=== PATIENT | male | born 1960 | race African-American/Black ===

== ENCOUNTER 2017-03-17 06:08 | Inpatient (IN) | payer OTHER ==
[2017-03-06 14:55] VITALS: BMI 33.2
[~2017-03-17 06:08] MED LIST: CEFAZOLIN 2 GM in DEXTROSE 5%-WATER - 50 ML IVPB ONE; ROPIVICAINE 0.2%/MORPH PF/KETOROLAC - 51ML DISP.SYRINGE IA ONE; TRANEXAMIC ACID 1000 MG/10 ML VIAL IVPUSH ONE
[2017-03-17] MEDS ORDERED: PANTOPRAZOLE 40 MG TABLET (FP) ONE (06:40)
[2017-03-17] MEDS ORDERED: oxyCODONE HCL 10 MG SUSTAINED ACTING TABLET ONE (06:40)
[2017-03-17] MEDS ORDERED: GABAPENTIN 300 MG CAPSULE (FP) ONE (06:41)
[2017-03-17] MEDS ORDERED: CELECOXIB 200 MG CAPSULE ONE (06:41)
[2017-03-17] MEDS: PANTOPRAZOLE 40 MG TABLET (FP) PO ONE (07:00)
[2017-03-17] MEDS: GABAPENTIN 300 MG CAPSULE (FP) PO ONE (07:00)
[2017-03-17] MEDS: oxyCODONE HCL 10 MG SUSTAINED ACTING TABLET PO ONE (07:00)
[2017-03-17] MEDS: CELECOXIB 200 MG CAPSULE PO ONE (07:00)
[2017-03-17] MEDS ORDERED: ceFAZolin SODIUM 1 GM VIAL ONE ×4 (07:13→13:23)
[2017-03-17] MEDS ORDERED: VANCOMYCIN 1,000 MG VIAL (RESTRICTED TO ID ONLY) ONE (07:13)
[2017-03-17] MEDS ORDERED: ROPIVICAINE 0.2%/MORPH PF/KETOROLAC - 51ML DISP.SYRINGE IA ONE ×3 (07:14→13:00)
[2017-03-17] MEDS ORDERED: MIDAZOLAM HCL 2 MG/2 ML SINGLE DOSE VIAL ONE ×4 (07:15→11:23)
[2017-03-17] MEDS ORDERED: DEXAMETHASONE SOD PHOSPHATE/PF 10 MG/ML SDV ONE (07:15)
[2017-03-17] MEDS ORDERED: BUPIVACAINE HCL/PF (5 MG/ML) 30 ML VIAL IJ ONE (07:16)
[2017-03-17] MEDS ORDERED: EPINEPHrine/PF 1 MG/1 ML (1:1,000) AMPULE ONE (07:16)
--- NOTE | 2017-03-17 07:23 | HP ---
Admitting History and Physical - Admission Chief Complaint: Painful total hip arthroplasty History of Present Illness: 56-year-old male presenting in regard to his left hip. Patient is status post a left total hip arthroplasty. Despite his surgery, patient continues to have pain , limited range of motion, difficulty ambulating, and difficulties with activities of daily living. Patient has failed conservative treatment measures including PO medications, injections, activity modification, and exercise program. At this point, patient would like to proceed with a revision left total hip arthroplasty. History Source: Patient - Past Medical History Cardiovascular: Yes: HTN Musculoskeletal: Yes: Osteoarthritis - Past Surgical History Additional Past Surgical History: total hip arthroplasty, see written history and physical. - Smoking History Smoking history: Never smoked Have you smoked in the past 12 months: No - Alcohol/Substance Use Hx Alcohol Use: No Home Medications - Allergies Allergies/Adverse Reactions: Allergies Allergy/AdvReac Type Severity Reaction Status Date / Time No Known Allergies Allergy Verified 03/06/17 14:45 - Home Medications Home Medications: Ambulatory Orders Amlodipine Besylate [Norvasc -] 5 mg PO DAILY 03/06/17 Aspirin [Aspirin EC] 325 mg PO DAILY 03/06/17 Cholecalciferol (Vitamin D3) [Vitamin D] 2,000 unit PO DAILY 03/06/17 Hydrochlorothiazide [Hctz -] 12.5 mg PO DAILY 03/06/17 Multivitamin [One Daily] 1 each PO DAILY 03/06/17 Meloxicam [Mobic (Nf) -] 15 mg PO DAILY PRN 03/17/17 Oxycodone HCl/Acetaminophen [Percocet 5-325 mg Tablet] 1 tab PO Q4H PRN Review of Systems - Review of Systems Musculoskeletal: reports: Joint Pain (left hip) Physical Examination Vital Signs: Vital Signs Temperature 98.0 F 03/17/17 07:02 Pulse Rate 64 03/17/17 07:02 Respiratory Rate 18 03/17/17 07:02 Blood Pressure 153/87 03/17/17 07:02 O2 Sat by Pulse Oximetry (%) Constitutional: Yes: Well Nourished, No Distress Eyes: Yes: Conjunctiva Clear HENT: Yes: Atraumatic, Normocephalic Neck: Yes: Supple Cardiovascular: Yes: Regular Rate and Rhythm Respiratory: Yes: Regular Gastrointestinal: Yes: Soft ...Rectal Exam: Yes: Deferred Musculoskeletal: Yes: Other (painfuk ROM of left GOLDIE) Assessment/Plan 56-year-old male presenting in regard to his left hip. Patient is status post a left total hip arthroplasty. Despite his surgery, patient continues to have pain , limited range of motion, difficulty ambulating, and difficulties with activities of daily living. Patient has failed conservative treatmwnt measures including PO medications, injections, activity modification, and exercise program. Pros, cons, risks, benefits and alternatives of a revision left total hip arthroplasty were discussed. Patient confirms his understanding, patient would like to proceed with a revision left total hip arthroplasty.
[2017-03-17] MEDS ORDERED: ROPIVACAINE HCL 0.5% 30ML VIAL ONE (07:34)
[2017-03-17] MEDS ORDERED: BUPIVACAINE HCL/PF 2.5 MG/ML - 30 ML VIAL IJ ONE (07:49)
[2017-03-17] MEDS ORDERED: SODIUM CHLORIDE 0.9% P/F 10 ML VIAL IJ ONE (07:51)
[2017-03-17] MEDS ORDERED: BUPIVACAINE HCL/PF 0.5% (5MG/ML) 10 ML VIAL ONE (08:24)
[2017-03-17] MEDS ORDERED: TRANEXAMIC ACID 1000 MG/10 ML VIAL ONE ×3 (08:37→13:23)
[2017-03-17] MEDS ORDERED: VANCOMYCIN 1,000 MG VIAL (RESTRICTED TO ID ONLY) IVPB ONE ×2 (09:03→13:00)
[2017-03-17] MEDS ORDERED: ceFAZolin SODIUM 1 GM VIAL IVPB ONE ×2 (09:03)
[2017-03-17] MEDS ORDERED: TRANEXAMIC ACID 1000 MG/10 ML VIAL IVPUSH ONE (13:00)
[2017-03-17] MEDS ORDERED: traMADol HCL 50 MG TABLET ONE (14:18)
[2017-03-17] MEDS ORDERED: KETOROLAC TROMETHAMINE 30 MG/1 ML VIAL ONE (14:18)
[2017-03-17] MEDS ORDERED: ACETAMINOPHEN INJECTION 100 ML IVPB ONE (14:18)
[2017-03-17] MEDS ORDERED: PROMETHAZINE HCL 25 MG/1 ML VIAL IVPB PRN (14:19)
[2017-03-17] MEDS ORDERED: ONDANSETRON 4 MG/2 ML VIAL IVPUSH PRN ×2 (14:19→14:41)
[2017-03-17] MEDS ORDERED: oxyCODONE HCL 5 MG TABLET PO PRN (14:19)
[2017-03-17] MEDS ORDERED: ACETAMINOPHEN 1000 MG/100 ML VIAL (NON FORMULARY) IVPB ONE ×2 (14:38→14:45)
[2017-03-17] MEDS ORDERED: MAGNESIUM HYDROX 2400MG/30ML ORAL SUSPENSION 30 ML CUP PO PRN (14:41)
[2017-03-17] MEDS ORDERED: MAG HYDROX/AL HYDROX/SIMETH 30 ML UNIT-DOSE CUP PO PRN (14:41)
[2017-03-17] MEDS ORDERED: LACTATED RINGERS SOLUTION 1,000 ML IV SCH (14:45)
--- NOTE | 2017-03-17 14:48 | OP ---
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
[2017-03-17] MEDS ORDERED: traMADol HCL 50 MG TABLET PO ONE (14:55)
[2017-03-17] MEDS ORDERED: KETOROLAC TROMETHAMINE 30 MG/1 ML VIAL IVPUSH ONE (14:59)
[2017-03-17] MEDS: KETOROLAC TROMETHAMINE 30 MG/1 ML VIAL IVPUSH SCH ×2 (15:54→20:52)
[2017-03-17] MEDS: traMADol HCL 50 MG TABLET PO SCH ×2 (15:54→20:53)
[2017-03-17] MEDS ORDERED: CEFAZOLIN 2 GM/D5W 2 GM/50 ML ML IVPB SCH (16:00)
[2017-03-17] MEDS ORDERED: VANCOMYCIN 1,500 MG in DEXTROSE 5%-WATER - 500 ML IVPB ONE (18:00)
[2017-03-17] MEDS ORDERED: DEXAMETHASONE SOD PHOSPHATE 10 MG/1 ML VIAL IVPB ONE (20:00)
[2017-03-17] MEDS: CEFAZOLIN 2 GM/D5W 2 GM/50 ML ML IVPB SCH (20:52)
[2017-03-17] MEDS: ACETAMINOPHEN 325 MG TABLET (FP) PO SCH (20:53)
[2017-03-17] MEDS ORDERED: GABAPENTIN 300 MG CAPSULE (FP) PO SCH (22:00)
[2017-03-17] MEDS: FERROUS SO4 325 MG TABLET (FP) PO SCH (22:20)
[2017-03-17] MEDS: GABAPENTIN 300 MG CAPSULE (FP) PO SCH (22:20)
[2017-03-17] MEDS: oxyCODONE HCL 10 MG SUSTAINED ACTING TABLET PO SCH (22:20)
[2017-03-17] MEDS: ASCORBIC ACID 500 MG TABLET (FP) PO SCH (22:20)
[2017-03-17] MEDS: CELECOXIB 200 MG CAPSULE PO SCH (22:20)
[2017-03-17] MEDS: SENNOSIDES/DOCUSATE COMBO (SENNA PLUS) TABLET (UD) PO SCH (22:20)
[2017-03-18] MEDS: KETOROLAC TROMETHAMINE 30 MG/1 ML VIAL IVPUSH SCH ×2 (03:08→09:17)
[2017-03-18] MEDS: traMADol HCL 50 MG TABLET PO SCH ×4 (03:09→21:40)
[2017-03-18] MEDS: ACETAMINOPHEN 325 MG TABLET (FP) PO SCH ×4 (03:09→21:39)
[2017-03-18] MEDS: CEFAZOLIN 2 GM/D5W 2 GM/50 ML ML IVPB SCH ×3 (04:30→21:39)
[2017-03-18] MEDS: CELECOXIB 200 MG CAPSULE PO ONE (07:45)
[2017-03-18] MEDS: oxyCODONE HCL 10 MG SUSTAINED ACTING TABLET PO ONE (07:45)
[2017-03-18] MEDS: GABAPENTIN 300 MG CAPSULE (FP) PO ONE (07:45)
[2017-03-18] MEDS: PANTOPRAZOLE 40 MG TABLET (FP) PO ONE (07:46)
[2017-03-18 08:51] LABS: ANION GAP 6 (8-16); BLOOD UREA NITROGEN 12 mg/dl (7-18); CALCIUM 8.5 mg/dl (8.4-10.2); CHLORIDE 104 mmol/L (98-107); CO2 24 mmol/L (22-28); CREATININE 0.8 mg/dl (0.6-1.3); GLUCOSE,RANDOM 127 mg/dl (74-106); HEMOGLOBIN 11.6 GM/dl (11.7-16.9); MCH 30.6 pg (25.7-33.7); MEAN CELL VOLUME 87.2 fl (80-96); PLATELET COUNT 204 K/MM3 (134-434); POTASSIUM 4.2 mmol/L (3.5-5.1); RBC 3.79 M/mm3 (4.00-5.60); SODIUM 134 mmol/L (136-145); WHITE BLOOD COUNT 11.7 K/mm3 (4.0-10.8)
[2017-03-18] MEDS: PANTOPRAZOLE 40 MG TABLET (FP) PO SCH (09:13)
[2017-03-18] MEDS: MULTIVITAMINS (DAILY MVI) TABLET (FP) PO SCH (09:13)
[2017-03-18] MEDS: amLODIPine BESYLATE 5 MG TABLET (FP) PO SCH (09:13)
[2017-03-18] MEDS: ASCORBIC ACID 500 MG TABLET (FP) PO SCH ×2 (09:13→21:42)
[2017-03-18] MEDS: GABAPENTIN 300 MG CAPSULE (FP) PO SCH ×2 (09:13→21:41)
[2017-03-18] MEDS: FERROUS SO4 325 MG TABLET (FP) PO SCH ×2 (09:13→21:40)
[2017-03-18] MEDS: ASPIRIN 325 MG ENTERIC COATED TABLET (FP) PO SCH (09:13)
[2017-03-18] MEDS: CELECOXIB 200 MG CAPSULE PO SCH ×2 (09:13→21:40)
[2017-03-18] MEDS: HYDROCHLOROTHIAZIDE 12.5 MG CAPSULE (FP) PO SCH (09:14)
[2017-03-18] MEDS: SENNOSIDES/DOCUSATE COMBO (SENNA PLUS) TABLET (UD) PO SCH ×2 (09:15→21:41)
[2017-03-18] MEDS: oxyCODONE HCL 10 MG SUSTAINED ACTING TABLET PO SCH ×2 (09:16→21:41)
[2017-03-18] MEDS ORDERED: MULTIVITAMINS (DAILY MVI) TABLET (FP) PO SCH (10:00)
--- NOTE | 2017-03-18 10:49 | PN ---
Progress Note, Physician Chief Complaint: s/p left revision total hip replacement History of Present Illness: under spinal anesthesia with peripheral nerve block for post op pain control - Current Medication List Current Medications: Active Medications Acetaminophen (Tylenol -) 650 mg PO Q6H [facility] Stop: 03/20/17 20:59 Last Admin: 03/18/17 09:15 Dose: 650 mg Al Hydroxide/Mg Hydroxide (Mylanta Oral Suspension -) 30 ml PO Q4H PRN PRN Reason: DYSPEPSIA Amlodipine Besylate (Norvasc -) 5 mg PO DAILY [facility] Last Admin: 03/18/17 09:13 Dose: 5 mg Ascorbic Acid (Vitamin C -) 500 mg PO BID [facility] Last Admin: 03/18/17 09:13 Dose: 500 mg Aspirin (Ecotrin -) 325 mg PO DAILY [facility] Last Admin: 03/18/17 09:13 Dose: 325 mg Celecoxib (Celebrex -) 200 mg PO BID [facility] Last Admin: 03/18/17 09:13 Dose: 200 mg Ferrous Sulfate (Feosol -) 325 mg PO BID [facility] Last Admin: 03/18/17 09:13 Dose: 325 mg Gabapentin (Neurontin -) 300 mg PO BID [facility] Stop: 03/20/17 21:59 Last Admin: 03/18/17 09:13 Dose: 300 mg Hydrochlorothiazide (Hctz -) 12.5 mg PO DAILY [facility] Last Admin: 03/18/17 09:14 Dose: 12.5 mg Cefazolin Sodium/Dextrose (Ancef 2 Gm Premixed Ivpb -) 2 gm in 50 mls @ 100 mls /hr IVPB Q8H [facility] Last Admin: 03/18/17 04:30 Dose: 100 mls/hr Magnesium Hydroxide (Milk Of Magnesia -) 30 ml PO PRN PRN PRN Reason: CONSTIPATION Multivitamins/Minerals/Vitamin C (Tab-A-Vit -) 1 tab PO DAILY [facility] Last Admin: 03/18/17 09:13 Dose: 1 tab Ondansetron HCl (Zofran Injection) 4 mg IVPUSH Q6H PRN PRN Reason: NAUSEA Oxycodone HCl (Roxicodone -) 5 mg PO Q3H PRN PRN Reason: PAIN LEVEL 1-5 Last Admin: 03/17/17 17:30 Dose: 5 mg Oxycodone HCl (Roxicodone -) 10 mg PO Q3H PRN PRN Reason: PAIN LEVEL 6-10 Oxycodone HCl (Oxycontin -) 10 mg PO BID [facility] Stop: 03/20/17 14:20 Last Admin: 03/18/17 09:16 Dose: 10 mg Pantoprazole Sodium (Protonix -) 40 mg PO DAILY [facility] Last Admin: 03/18/17 09:13 Dose: 40 mg Promethazine HCl (Phenergan Injection -) 12.5 mg IVPB Q6H PRN PRN Reason: NAUSEA-FOR RESCUE AFTER 15 MIN Senna/Docusate Sodium (Pericolace -) 2 tablet PO BID [facility] Last Admin: 03/18/17 09:15 Dose: 2 tablet Tramadol HCl (Ultram -) 50 mg PO Q6H [facility] Last Admin: 03/18/17 09:15 Dose: 50 mg - Objective Vital Signs: Vital Signs Temperature 98.6 F 03/18/17 09:12 Pulse Rate 88 03/18/17 09:12 Respiratory Rate 17 03/18/17 09:12 Blood Pressure 155/69 03/18/17 09:12 O2 Sat by Pulse Oximetry (%) 95 03/18/17 06:13 Constitutional: Yes: Well Nourished Cardiovascular: Yes: WNL Respiratory: Yes: WNL Gastrointestinal: Yes: WNL Neurological: Yes: WNL Labs: CBC, BMP 03/18/17 08:00 03/18/17 08:00 Assessment/Plan post op day one, patient is doing well , pain controlled, no nausea vomiting or headache, no adverse anesthetic reaction . dept of anesthesia will sign off care at this time.
[2017-03-18] MEDS: oxyCODONE HCL 5 MG TABLET PO PRN (16:17)
--- NOTE | 2017-03-18 22:17 | PN ---
Progress Note (short form) - Note Progress Note: Pt seen and examined. Doing very well. Walked 700+ feet today. AVSS Selected Entries 03/18/17 03/18/17 14:09 20:32 Temperature 97.9 F Pulse Rate 83 Respiratory 19 Rate Blood Pressure 146/59 O2 Sat by Pulse 96 Oximetry (%) Oxygen Delivery Room Air Method Laboratory Tests 03/18/17 03/18/17 08:00 08:00 WBC 11.7 H Hgb 11.6 L Hct 33.0 L Plt Count 204 Sodium 134 L Potassium 4.2 Chloride 104 Carbon Dioxide 24 Anion Gap 6 L BUN 12 Creatinine 0.8 Random Glucose 127 H Calcium 8.5 Gen: NAD LLE: c/d/i, NVID A/P 56yo male POD#1 s/p L hip revision 1. PT/OOB - WBAT LLE 2. D/C home in AM after PT; f/u in 10-14 days as an outpatient.
--- NOTE | 2017-03-18 22:32 | DS ---
Physical Examination Vital Signs: Vital Signs Temperature 97.9 F 03/18/17 14:09 Pulse Rate 83 03/18/17 14:09 Respiratory Rate 19 03/18/17 20:32 Blood Pressure 146/59 03/18/17 14:09 O2 Sat by Pulse Oximetry (%) 96 03/18/17 20:32 Labs: CBC, BMP 03/18/17 08:00 03/18/17 08:00 Discharge Summary Reason For Visit: PAIN DUE TO INTERNAL ORTHOPEDIC DEVICES Current Active Problems Loose total hip arthroplasty (Acute) Procedures: Principal: left hip replacement femoral component revision Hospital Course: Admitted for elective surgery. Procedure performed without complications. Pt received postoperative antibiotic prophylaxis and DVT ppx. Ambulated with physical therapy. Stable for discharge home with outpatient followup. Condition: Stable - Instructions Diet, Activity, Other Instructions: Dr Vargas - Hip Replacement Instructions Keep the Aquacel dressing on until removed by Dr. Vargas in 10-14 days - it is antibacterial and waterproof and you can shower with it on. Call the office for a follow-up appointment with Dr. Vargas in 10-14 days. Take one Aspirin 325mg daily for 6 weeks to prevent blood clots in your legs. Take one Pantoprazole 40mg daily for 6 weeks to protect against heartburn and ulcers. Take Celebrex 200mg twice daily for 30 days to reduce swelling and inflammation. Take Cephalexin 500mg (antibiotic) 3x/day for 3 weeks to protect against skin infection while the incision heals. Take a multivitamin, extra vitamin C supplement, iron supplement, and a stool softener daily. Take Ambien at night as needed for insomnia. Be careful taking this with pain medications so that you do not get too drowsy/sedated. For pain: *Mild pain (1-3/10): Take 1 Tramadol tablet every 4 hours as needed. Moderate pain (4-6/10): Take 1 Tramadol tablet and 1 Percocet tablet every 4 hours as needed. Severe pain (7-10/10): Take 1 Tramadol tablet and 2 Percocet tablets every 4 hours as needed. Activity: You can put as much weight on the operative leg as you want. For the first 6 weeks, all you need to do is walk around the house, go up/down stairs, and sit down/get up. After 6 weeks when everything is healed (and bone has grown into the implant) you will be sent for more intensive outpatient physical therapy. Always use a walker or cane for balance and to prevent falls. Disposition: [facility]/HOME HEALTH CARE - Home Medications Comprehensive Discharge Medication List: Ambulatory Orders Amlodipine Besylate [Norvasc -] 5 mg PO DAILY 03/06/17 Aspirin [Aspirin EC] 325 mg PO DAILY 03/06/17 Cholecalciferol (Vitamin D3) [Vitamin D3] 2,000 unit PO DAILY 03/06/17 Hydrochlorothiazide [Hctz -] 12.5 mg PO DAILY 03/06/17 Multivitamin [One Daily] 1 each PO DAILY 03/06/17 Ascorbic Acid [Vitamin C -] 500 mg PO BID tablet 03/18/17 Celecoxib [CeleBREX -] 200 mg PO BID #60 capsule 03/18/17 Cephalexin [Keflex] 500 mg PO TID #60 capsule 03/18/17 Ferrous Sulfate [Feosol] 325 mg PO BID ud 03/18/17 Multivitamins [Multivit ([facility] Formulary)] 1 tab PO DAILY tab 03/18/17 Oxycodone HCl/Acetaminophen [Percocet 5-325 mg Tablet] 1 - 2 tab PO Q4H PRN #60 tablet MDD 8 03/18/17 Pantoprazole Sodium [Protonix -] 40 mg PO DAILY #40 tablet.ec 03/18/17 Sennosides/Docusate Sodium [Pericolace -] 2 tablet PO BID tablet 03/18/17 Zolpidem Tartrate [Ambien] 5 mg PO HS PRN #30 tablet MDD 1 03/18/17 traMADol HCL [Ultram -] 50 mg PO Q4H PRN #90 tablet MDD 6 03/18/17
[2017-03-19] MEDS: traMADol HCL 50 MG TABLET PO SCH ×2 (03:29→08:50)
[2017-03-19] MEDS: ACETAMINOPHEN 325 MG TABLET (FP) PO SCH ×2 (03:30→08:51)
[2017-03-19] MEDS: CEFAZOLIN 2 GM/D5W 2 GM/50 ML ML IVPB SCH (06:19)
[2017-03-19 06:41] VITALS: TEMP 98.7
[2017-03-19] MEDS: oxyCODONE HCL 5 MG TABLET PO PRN (08:51)
[2017-03-19 08:56] LABS: HEMOGLOBIN 10.9 GM/dl (11.7-16.9); MEAN CELL VOLUME 87.4 fl (80-96); WHITE BLOOD COUNT 9.8 K/mm3 (4.0-10.8)
[2017-03-19 08:58] LABS: ANION GAP 4 (8-16); BLOOD UREA NITROGEN 13 mg/dl (7-18); CALCIUM 8.3 mg/dl (8.4-10.2); CHLORIDE 103 mmol/L (98-107); CO2 26 mmol/L (22-28); GLUCOSE,RANDOM 147 mg/dl (74-106); POTASSIUM 3.7 mmol/L (3.5-5.1); SODIUM 133 mmol/L (136-145)
[2017-03-19 09:12] LABS: HEMATOCRIT 31.6 % (35.4-49); MCH 30.2 pg (25.7-33.7); MCHC 34.5 g/dl (32.0-35.9); MEAN PLT VOLUME 9.8 fl (7.5-11.1); PLATELET COUNT 200 K/MM3 (134-434); RBC 3.61 M/mm3 (4.00-5.60); RDW 13.1 % (11.9-15.9)
[2017-03-19 10:08] VITALS: BP 143/68; PULSE 87
[2017-03-19] MEDS: ASPIRIN 325 MG ENTERIC COATED TABLET (FP) PO SCH (10:10)
[2017-03-19] MEDS: amLODIPine BESYLATE 5 MG TABLET (FP) PO SCH (10:10)
[2017-03-19] MEDS: ASCORBIC ACID 500 MG TABLET (FP) PO SCH (10:10)
[2017-03-19] MEDS: HYDROCHLOROTHIAZIDE 12.5 MG CAPSULE (FP) PO SCH (10:10)
[2017-03-19] MEDS: oxyCODONE HCL 10 MG SUSTAINED ACTING TABLET PO SCH (10:11)
[2017-03-19] MEDS: CELECOXIB 200 MG CAPSULE PO SCH (10:11)
[2017-03-19] MEDS: PANTOPRAZOLE 40 MG TABLET (FP) PO SCH (10:11)
[2017-03-19] MEDS: SENNOSIDES/DOCUSATE COMBO (SENNA PLUS) TABLET (UD) PO SCH (10:11)
[2017-03-19] MEDS: FERROUS SO4 325 MG TABLET (FP) PO SCH (10:11)
[2017-03-19] MEDS: MULTIVITAMINS (DAILY MVI) TABLET (FP) PO SCH (10:11)
[2017-03-19] MEDS: GABAPENTIN 300 MG CAPSULE (FP) PO SCH (10:11)
--- NOTE | 2017-03-20 13:12 | PATH ---
Surgical Pathology Report Patient Name: BRUCE SCHROEDER Med. Rec. #: [id number] /Age/Gender: 1960 (Age: 56) / M Account: [id number] [facility] Taken: 03/17/2017 Received: 03/17/2017 Reported: 03/20/2017 Physicians: Star Vargas M.D. Specimen(s) Received EXPLANTED HARDWARE LEFT HIP Clinical History Failed left total hip replacement Final Diagnosis HARDWARE, LEFT HIP, EXPLANT: HARDWARE, DESCRIBED (GROSS EXAMINATION ONLY). Electronically Signed Janet Osuna M.D. Gross Description Received fresh labeled "explanted hardware left hip," are 2 bird metallic portions of hardware measuring 3.0 and 15.5 cm in greatest dimension, consistent with explanted hip hardware. No soft tissue is present. No sections are submitted, gross only. /03/18/201703/18/2017
== END 2017-03-19 10:45 | disposition home health service (06) | DRG 468 ==
LOC: FM/S 06:08
PROVIDERS: ADMIT Student in an Organized Health Care Education/Training Program; ATTEND Student in an Organized Health Care Education/Training Program
PROC: 0SPB0JZ Removal of Synthetic Substitute from Left Hip Joint, Open Approach (ICD-10-PCS; 2017-03-17)
PROC: 0SRB03Z Replacement of Left Hip Joint with Ceramic Synthetic Substitute, Open Approach (ICD-10-PCS; principal; 2017-03-17 09:03)
DX: T84.031A Mechanical loosening of internal left hip prosthetic joint, initial encounter (principal); Y83.8 Other surgical procedures as the cause of abnormal reaction of the patient, or of later complication, without mention of misadventure at the time of the procedure; Y92.89 Other specified places as the place of occurrence of the external cause; I10 Essential (primary) hypertension; E66.9 Obesity, unspecified; Z68.33 Body mass index [BMI] 33.0-33.9, adult
CPT/HCPCS: 36415; 73502-TC-LT-FY; 73552-TC-LT-FY; 80048; 85027; 88300-TC; 94010; 97116-GP; 97162-GP; J1100